=== PATIENT | female | born 1985 | race Caucasian/White ===

== ENCOUNTER 2021-11-30 14:01 | Inpatient (IN) | payer MEDICAID ==
[~2021-11-30] VITALS: Ht 172.7 cm; Wt 140.2 kg
[2021-11-30 14:06] VITALS: BP_SYST 115
--- NOTE | 2021-11-30 14:14 | NUR ---
BIBA WITH C/C OF S/P FALL WHILE WALKING DOWN CEMENT STAIRWAY AT [employer]. PRESENTS WITH RIGHT LOWER EXTREMITY IN FOAM IMMOBILIZER AND SMALL LACERATION TO LEFT PARIETAL SCALP. DENIES ANY N/V/DIZZINESS OR LOC. REPORTS PAIN 10/10 FROM ANKLE AFTER IMMOBILIZER PLACED BY EMT. PT REPORTS REDUCING ANKLE DISLOCATION INDEPENDENTLY AND WHEN IMMOBILIZER PLACED ANKLE DISLOCATED. PLACED IN ROOM 6. DR. WARREN SEEN PT WHILE ON [facility].
[2021-11-30] MEDS ORDERED: MORPHINE 4 MG INJ. 4 MG/ML VIAL IVP ONE (14:15)
[2021-11-30] MEDS ORDERED: NACL 0.9% 1,000 ML IV ONE (14:15)
[2021-11-30] MEDS ORDERED: ONDANSETRON HCL 4 MG/2 ML VIAL IVP ONE ×2 (14:15→15:15)
[2021-11-30] MEDS ORDERED: PROPOFOL 200MG/ 20ML VIAL (DIPRIVAN) IV ONE (15:15)
[2021-11-30] MEDS ORDERED: HYDROmorphone 1 MG/ML INJ. CARTRIDGE IVP ONE ×3 (15:15→19:45)
--- NOTE | 2021-11-30 16:08 | NUR ---
Patient on monitor, oxygen. Iv checked- flushes well. Suction working, crash cart right outside the room. MD finishing consious sedation paperwork. Everything ready to go: pt aware of plan of care.
--- NOTE | 2021-11-30 16:50 | NUR ---
CONSCIOUS SEDATION AT BEDSIDE. PLACED ON NC 2LPM WITH ETCO2 MONITOR. SPO2 97%, ETCO2 37-44. NO RESPIRATORYDISTRESS NOTED.
[2021-11-30 17:07] LABS: BASOPHILS % (AUTO) 0.2 % (0.0-2.0); EOSINOPHILS % (AUTO) 0.3 % (0.0-4.0); HEMOGLOBIN 10.7 g/dL (12.0-16.0); LYMPHOCYTES # (AUTO) 1.2 K/uL (1.0-5.5); LYMPHOCYTES % (AUTO) 10.8 % (20.5-51.5); MEAN CORPUSCULAR HEMOGLOBIN 26 pg (27-31); MEAN CORPUSCULAR HGB CONC 32 % (32-36); MEAN CORPUSCULAR VOLUME 81 fL (79.0-98.0); MONOCYTES # (AUTO) 0.5 K/uL (0.0-1.0); NEUTROPHILS # (AUTO) 9.6 K/uL (1.8-7.7); NEUTROPHILS % (AUTO) 84.7 % (40.0-70.0); PLATELET COUNT (AUTO) 257 K/uL (130-430); RED BLOOD CELL COUNT(AUTO) 4.06 MIL/uL (4.2-6.2); RED CELL DISTRIBUTION WIDTH 14.3 % (9.0-15.0); WHITE BLOOD COUNT (AUTO) 11.4 K/uL (4.8-10.8)
[2021-11-30 17:27] LABS: CALCIUM 8.7 mg/dL (8.4-11.0); CREATININE 0.89 mg/dL (0.55-1.30)
[2021-11-30 17:33] LABS: ALBUMIN 3.3 g/dL (3.4-4.8); TOTAL BILIRUBIN 0.2 mg/dL (0.0-1.0)
--- NOTE | 2021-11-30 18:28 | NUR ---
Admit bed requested Patient will be admitted to care of Admitted to Med Surg unit. Diagnosis Ankle FX Inpatient (Yes or No) yes Observation (Yes or No) Orientation concerns or request close to nursing station (Yes or No) no Covid Status On vent or bipap no Isolation requirements no Needs a sitter no From Home (Yes or if No enter name of facility) yes Requires Dialysis (Yes or No) no Med Rec Completed (Yes of No) yes
[2021-11-30] MEDS ORDERED: KETOROLAC TROMETHAMINE 30 MG VIAL IVP ONE (18:30)
[2021-11-30] MEDS ORDERED: ESCI10TA PO (18:35)
--- NOTE | 2021-11-30 19:06 | NUR ---
Report to Blake CAMARILLO
--- NOTE | 2021-11-30 20:17 | NUR ---
patient is Alert and oriented x4 and still complaning about the pain on the right foot. she is coperative, no sign of repiratory distress. vital sign is 63, 97, 108/58, 98.2.
[2021-11-30 20:55] VITALS: BP_SYST 109
[2021-11-30] MEDS ORDERED: NALOXONE HCL 0.4 MG/ML AMP (NARCAN) IVP PRN ×2 (21:15)
[2021-11-30] MEDS ORDERED: ACETAMINOPHEN 325 MG TABLET PO PRN (21:15)
[2021-11-30] MEDS ORDERED: HYDROcodone/ACETAMIN 5-325 MG TAB (NORCO/ VICODIN) PO PRN (21:15)
[2021-11-30] MEDS: HYDROcodone/ACETAMIN 10-325 MG TAB PO PRN (21:24)
[2021-11-30] MEDS ORDERED: ONDANSETRON HCL 4 MG/2 ML VIAL ONE (21:55)
[2021-11-30] MEDS ORDERED: ONDANSETRON HCL 4 MG/2 ML VIAL IM PRN ×2 (22:00→23:15)
--- NOTE | 2021-11-30 22:26 | NUR ---
Consultation Paged Reason for Consultation: Rt ankle fx Was consult called: Y Person who was notified: Krissy Consulting Physician: Dr. Caban Ordering Physician: Tommy Moon
--- NOTE | 2021-11-30 23:50 | NUR ---
CASTANO CATH INSERTION # 16 FR Castano catheter with 10 ML bulb inserted with use of sterile technique. Bulb inflated with 10 ML sterile water. Immediate return of 300 ML of yellow urine noted. Bedside drainage bag placed below level of bladder. Urine sample collected and sent to lab at 0100. Pt tolerated procedure WELL.
[2021-12-01] MEDS: traZODone HCL 50 MG TABLET (DESYREL) PO SCH ×2 (00:09→21:30)
[2021-12-01] MEDS: OXYCODONE/ACETAMINOPHEN *10*mg/325 mg TABLET PO PRN ×4 (00:11→18:29)
--- NOTE | 2021-12-01 00:40 | NUR ---
Patient will be admitted to care of fracture on right foot . Admitted to medsur] unit. Will go to room 109A . Belongings list completed. Complete and up to date summary report printed. SBAR report to be given at bedside with opportunity for questions Rn for room 109 A
[2021-12-01] MEDS ORDERED: ONDANSETRON HCL 4 MG/2 ML VIAL IVP PRN (01:15)
[2021-12-01 04:13] LABS: BILIRUBIN,URINE NEGATIVE (NEGATIVE); BLOOD, URINE NEGATIVE (NEGATIVE); CLARITY/URINE CLEAR (CLEAR); COLOR,URINE YELLOW (YELLOW); GLUCOSE,URINE NEGATIVE (NEGATIVE); KETONES,URINE NEGATIVE (NEGATIVE); LEUKOCYTE ESTERASE ,URINE NEGATIVE (NEGATIVE); NITRITE, URINE NEGATIVE (NEGATIVE); PH,URINE 5.5 (5.0-8.0); PROTEIN URINE NEGATIVE (NEGATIVE); UROBILINOGEN,URINE 0.2 (0.2-1.0)
[2021-12-01] MEDS: ONDANSETRON HCL 4 MG/2 ML VIAL IVP PRN ×3 (05:07→15:56)
[2021-12-01] MEDS: NORMAL SALINE 5 ML DISP.SYRIN IVF SCH ×3 (05:10→21:32)
--- NOTE | 2021-12-01 05:51 | NUR ---
CONSULTATION PAGED/CALLED Reason for Consultation: CARDIAC CLEARANCE Person Who was Notified: DR Min SERRATO VIA TEXT Consulting Physician: DR Min SERRATO Senior Clinical Data Analyst Specialty: Ordering Physician: Kb SERRATO
[2021-12-01] MEDS ORDERED: NORMAL SALINE 5 ML DISP.SYRIN IVF SCH (06:00)
[2021-12-01 06:58] LABS: BASOPHILS % (AUTO) 0.5 % (0.0-2.0); EOSINOPHILS # (AUTO) 0.1 K/uL (0.0-0.4); EOSINOPHILS % (AUTO) 0.8 % (0.0-4.0); HEMATOCRIT 31.3 % (36-48); HEMOGLOBIN 10.6 g/dL (12.0-16.0); LYMPHOCYTES # (AUTO) 2.2 K/uL (1.0-5.5); LYMPHOCYTES % (AUTO) 25.4 % (20.5-51.5); MEAN CORPUSCULAR HEMOGLOBIN 28 pg (27-31); MEAN CORPUSCULAR HGB CONC 34 % (32-36); MEAN CORPUSCULAR VOLUME 81 fL (79.0-98.0); MONOCYTES # (AUTO) 0.6 K/uL (0.0-1.0); MONOCYTES % (AUTO) 6.9 % (1.7-9.3); NEUTROPHILS # (AUTO) 5.7 K/uL (1.8-7.7); NEUTROPHILS % (AUTO) 66.4 % (40.0-70.0); PLATELET COUNT (AUTO) 238 K/uL (130-430); RED BLOOD CELL COUNT(AUTO) 3.85 MIL/uL (4.2-6.2); RED CELL DISTRIBUTION WIDTH 14.4 % (9.0-15.0); WHITE BLOOD COUNT (AUTO) 8.6 K/uL (4.8-10.8)
[2021-12-01 07:42] LABS: ALBUMIN 2.8 g/dL (3.4-4.8); CALCIUM 7.9 mg/dL (8.4-11.0); CREATININE 0.88 mg/dL (0.55-1.30); PHOSPHORUS 3.9 mg/dL (2.7-4.5); TOTAL BILIRUBIN 0.3 mg/dL (0.0-1.0)
[2021-12-01] MEDS: CITALOPRAM HYDROBROMIDE 20 MG TABLET PO SCH (08:24)
[2021-12-01] MEDS: HYDROcodone/ACETAMIN 10-325 MG TAB PO PRN ×3 (08:28→21:31)
[2021-12-01] MEDS ORDERED: ESCITALOPRAM OXALATE 10 MG TABLET PO SCH ×2 (09:00→21:00)
--- NOTE | 2021-12-01 10:07 | NUR ---
CONSULTATION PAGED/CALLED Reason for Consultation: []rt. ankle fracture Person Who was Notified: []left message/voicemail Consulting Physician: [] Dr. Caban Manager Nursing Home Specialty: []Ortho Ordering Physician: []Kb Moon
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
[2021-12-01 16:10] VITALS: BP_SYST 128
--- NOTE | 2021-12-01 17:06 | NUR ---
ROUNDS 11:00 ASSUMED PATIENT CARE FROM [facility]. DISCUSSED POC. VERBALIZED UNDERSTANDING 12:00 PATIENT WANTING TO SIT IN THE BEDSIDE CHAIR, INFORMED WILL NEED A CLEARANCE. 13:00- PT ROOM MATE VISITOR CALLED REPORTERS ATTENTION, PATIENT GOT OUT OF BED AND SAT ON THE RECLINER CHAIR AND USING RECLINER WHEELED SELF TO THE RESTROOM. EDUCATED PATIENT OF POTENTIAL INJURY DUE TO HER ACTION, PATIENT STATED " DO NOT WORRY ABOUT ME, I HAVE SEVERAL FRACTURES IN THE PAST THAT I KNOW HOW TO MANEUVER MY SELF". DENIES PUTTING WEIGHT ON THE RIGHT FOOT,. 14:00- PATIENT WANTED TO REMAIN SEATED IN THE RECLINER CHAIR, CALL RIGHT WITHIN PATIENT REACH. CONTINUE TO MONITOR
[2021-12-01] MEDS: BISACODYL 5 MG TABLET.DR (DULCOLAX) PO PRN (18:31)
--- NOTE | 2021-12-01 18:35 | NUR ---
CLOSING PAIN 10/10RIT ANKLE. DEEP BREATHING EXERCISES, COLD COMPRESS. MEDICATED WITH PERCOCET
[2021-12-01 21:34] VITALS: BP_SYST 140
[2021-12-02] MEDS: OXYCODONE/ACETAMINOPHEN *10*mg/325 mg TABLET PO PRN ×2 (00:21→16:30)
[2021-12-02 00:30] VITALS: BP_SYST 110
[2021-12-02] MEDS ORDERED: NALOXONE HCL 0.4 MG/ML AMP (NARCAN) IVP PRN (01:00)
[2021-12-02] MEDS ORDERED: MORPHINE 2 MG/ML INJ. SYRINGE IVP PRN (01:00)
[2021-12-02] MEDS: CITALOPRAM HYDROBROMIDE 20 MG TABLET PO SCH ×3 (01:27→20:46)
[2021-12-02] MEDS: NORMAL SALINE 5 ML DISP.SYRIN IVF SCH ×2 (05:36→14:10)
[2021-12-02] MEDS: MORPHINE 2 MG/ML INJ. SYRINGE IVP PRN (05:40)
[2021-12-02 08:00] VITALS: BP_SYST 98
[2021-12-02] MEDS ORDERED: HYDROmorphone 2 MG/ML VIAL ONE (09:04)
[2021-12-02] MEDS ORDERED: SEVOFLURANE 15 MIN GAS INH ONE (09:04)
[2021-12-02] MEDS ORDERED: GLYCOPYRROLATE 0.2 MG/ML VIAL ONE (09:04)
[2021-12-02] MEDS ORDERED: MIDAZOLAM HCL 5 MG/5 ML VIAL ONE (09:04)
[2021-12-02] MEDS ORDERED: ONDANSETRON HCL 4 MG/2 ML VIAL ONE (09:04)
[2021-12-02] MEDS ORDERED: fentaNYL CITRATE 250 MCG/5 ML AMP ONE (09:04)
[2021-12-02] MEDS ORDERED: METOCLOPRAMIDE HCL 10 MG/2 ML VIAL ONE (09:04)
[2021-12-02] MEDS ORDERED: PROPOFOL 200MG/ 20ML VIAL (DIPRIVAN) IV ONE (09:04)
[2021-12-02] MEDS ORDERED: LR 1,000 ML IV.SOLN IV ONE (09:04)
[2021-12-02] MEDS ORDERED: ONDANSETRON HCL 4 MG/2 ML VIAL IVP PRN (09:45)
[2021-12-02] MEDS ORDERED: LR 1,000 ML IV SCH (09:45)
[2021-12-02] MEDS ORDERED: KETOROLAC TROMETHAMINE 30 MG VIAL IVP PRN (09:45)
[2021-12-02] MEDS ORDERED: HYDROmorphone 1 MG/ML INJ. CARTRIDGE IVP PRN (09:45)
[2021-12-02] MEDS ORDERED: HYDROmorphone 2 MG/ML VIAL IVP PRN (09:45)
[2021-12-02] MEDS ORDERED: ONDANSETRON 4 MG ODT TAB PO PRN (11:45)
[2021-12-02] MEDS ORDERED: ACETAMINOPHEN 325 MG TABLET PO PRN ×2 (11:45→12:30)
--- NOTE | 2021-12-02 14:19 | NUR ---
ORDER RECEIVED AND CHART REVIEWED. PATIENT IS TOO SLEEPY TO PARTICIPATE AT THIS TIME. PLAN: ATTEMPT TOMORROW.
[2021-12-02] MEDS: CEFAZOLIN 1 GM IVPB PREMIX 50 ML IV SCH (14:20)
[2021-12-02 16:00] VITALS: BP_SYST 102
[2021-12-02 20:00] VITALS: BP_SYST 106; BP_SYST 113
[2021-12-02] MEDS: ASCORBIC ACID 500 MG TABLET PO SCH (20:46)
[2021-12-02] MEDS: HYDROcodone/ACETAMIN 10-325 MG TAB PO PRN (20:48)
[2021-12-02] MEDS: traZODone HCL 50 MG TABLET (DESYREL) PO SCH (20:48)
[2021-12-02] MEDS: DOCUSATE SODIUM 100 MG CAPSULE PO SCH (20:48)
[2021-12-02 21:38] VITALS: BP_SYST 102
[2021-12-03] VITALS: BP_SYST 103
[2021-12-03] MEDS: NORMAL SALINE 5 ML DISP.SYRIN IVF SCH ×4 (00:22→21:36)
[2021-12-03] MEDS: CEFAZOLIN 1 GM IVPB PREMIX 50 ML IV SCH (00:22)
[2021-12-03] MEDS: OXYCODONE/ACETAMINOPHEN *10*mg/325 mg TABLET PO PRN ×5 (00:24→21:38)
[2021-12-03] MEDS: MORPHINE 2 MG/ML INJ. SYRINGE IVP PRN ×3 (04:27→12:43)
[2021-12-03 08:00] VITALS: BP_SYST 109
[2021-12-03] MEDS: DOCUSATE SODIUM 100 MG CAPSULE PO SCH ×2 (08:39→21:35)
[2021-12-03] MEDS: CITALOPRAM HYDROBROMIDE 20 MG TABLET PO SCH ×2 (08:39→12:43)
[2021-12-03] MEDS: ASCORBIC ACID 500 MG TABLET PO SCH ×2 (08:39→21:36)
[2021-12-03] MEDS: ENOXAPARIN SODIUM 40 MG/0.4 ML SYRINGE SUBCUT SCH (08:40)
[2021-12-03] MEDS ORDERED: ESCITALOPRAM OXALATE 10 MG TABLET PO SCH (09:00)
--- NOTE | 2021-12-03 11:16 | NUR ---
I spoke w/ Dr Caban-patient will need EX Large walking boot- and FWW for home use.
--- NOTE | 2021-12-03 12:05 | NUR ---
Discharge Planning: DCP faxed pt DME-FWW order to [facility] [phone] [facility] DC requested FWW to be delivered bedside. DCP to follow up. Addendum: 12/03/21 at 1602 by Rima Lay DP Per CM Trini from [facility] called FWW should be here with 3 to 4 hours.
[2021-12-03 12:18] VITALS: BP_SYST 121
[2021-12-03] MEDS: BISACODYL 5 MG TABLET.DR (DULCOLAX) PO PRN ×2 (13:48→21:46)
[2021-12-03 16:45] VITALS: BP_SYST 126
[2021-12-03 17:11] LABS: BILIRUBIN,URINE NEGATIVE (NEGATIVE); BLOOD, URINE 3+ (NEGATIVE); CLARITY/URINE CLEAR (CLEAR); COLOR,URINE YELLOW (YELLOW); GLUCOSE,URINE NEGATIVE (NEGATIVE); KETONES,URINE NEGATIVE (NEGATIVE); LEUKOCYTE ESTERASE ,URINE TRACE (NEGATIVE); NITRITE, URINE NEGATIVE (NEGATIVE); PH,URINE 7.5 (5.0-8.0); PROTEIN URINE 1+ (NEGATIVE)
[2021-12-03 17:25] LABS: BACTERIA,URINE None Seen /HPF (None Seen); RBC,URINE >100 /HPF (0-3); WBC,URINE 0-3 /HPF (0-3)
[2021-12-03 17:26] LABS: MUCUS,URINE 1+ /LPF (None Seen)
--- NOTE | 2021-12-03 18:00 | NUR ---
A/Ox4,vss,resting in bed,c/o pain in right ankle,dressing in R foot dry and intact with splint on,swelling noted, came and seen pt.give percocet and morphine as prn order for pain,elevated RLE with pillows and applied ice packs.pt said there's blood seen in the urine médnez catheter discontinued and sent urine for UA.needs attended,call light & personal items within pt reach,safety maintained.walking boot delivered at bedside.continue to monitor pt.
[2021-12-03] MEDS: traZODone HCL 50 MG TABLET (DESYREL) PO SCH (21:35)
[2021-12-03] MEDS: LORazepam 1 MG TABLET PO PRN (21:40)
[2021-12-04] MEDS: OXYCODONE/ACETAMINOPHEN *10*mg/325 mg TABLET PO PRN ×6 (02:03→21:27)
[2021-12-04] MEDS: NORMAL SALINE 5 ML DISP.SYRIN IVF SCH ×3 (06:12→21:35)
[2021-12-04 08:28] VITALS: BP_SYST 94
[2021-12-04] MEDS: ASCORBIC ACID 500 MG TABLET PO SCH ×2 (09:23→21:28)
[2021-12-04] MEDS: CITALOPRAM HYDROBROMIDE 20 MG TABLET PO SCH ×2 (09:23→09:29)
[2021-12-04] MEDS: DOCUSATE SODIUM 100 MG CAPSULE PO SCH ×2 (09:24→21:28)
[2021-12-04] MEDS: ENOXAPARIN SODIUM 40 MG/0.4 ML SYRINGE SUBCUT SCH (09:25)
[2021-12-04] MEDS: MILK OF MAGNESIA 30 ML UDC PO PRN (12:26)
--- NOTE | 2021-12-04 15:00 | NUR ---
DISCHARGE PLANNING I spoke with pt at bedside along with dc inventory planner. Discussed dc planning. Pt states is going to be going to stay in mothers apt in [place]. Has her bariatric FWW at bedside. Would like 3-in-1 commode for home since bathroom in mothers home is very narrow and cannot fit thru it with her FWW. Called & spoke with Dr Caban, is coming to check pt's wound & change dressing. Gave ph order for bariatric 3-in-1 commode & for home health PT & nsg incision check. Informed pt and agrees with home health as well as commode. Updated dc inventory planner. DC inventory planner has pt's address & sent order/correct info to [facility].
[2021-12-04 15:17] VITALS: BP_SYST 127
--- NOTE | 2021-12-04 15:19 | NUR ---
Discharge Planning: SMILEYP faxed pt referral for commode and home health to [facility] [phone]. Addendum: 12/04/21 at 1525 by Rima Lay DP Patient will go to mother's house [address] [place] [facility] [address] P#[phone]. S[facility]LEYP made [facility] aware. Addendum: 12/04/21 at 1542 by Rima Lay DP DCP faxed final dc order from Dr Fleming to [facility] [phone].. When patient is dc by ortho please call [facility] [phone] to set up transportation home [address] [place] [facility] [address] P#[phone]. DCP made CM and nurse aware.
--- NOTE | 2021-12-04 15:38 | NUR ---
0730 Pt. in bed, sleeping, call light in reach 0900 Pt. vss, no acute distress 1000 Medicated for pain, pt. up to shower 1200 Pt. with no distress, up in chair at bedside 1400 Pt. with no distress, aaox4, possible dc today. Medicated for pain at 0130 by chg. nurse.
[2021-12-04] MEDS: BISACODYL 5 MG TABLET.DR (DULCOLAX) PO PRN (17:34)
--- NOTE | 2021-12-04 18:18 | NUR ---
1800 Pt. needs met this shift, vss, eating dinner. Given ducolax, MOM for constipation with no results. Educated on effects of narcotics on bowels, pt. verbalized understanding. Order for magcitrate 1/2 bottle at 1930 if no results from po ducolax. Pt. to go home tomorrow , dayshift to call transport company at 0700 for 10am pickup.
--- NOTE | 2021-12-04 19:24 | NUR ---
1800 Pt. has hard copy of discharge RX for pain medications. Copy is in chart. MD Caban gave the rx to pt.
[2021-12-04] MEDS ORDERED: MAGNESIUM CITRATE 300 ML ORAL SOLUTION PO PRN (19:30)
[2021-12-04 20:00] VITALS: BP_SYST 98
[2021-12-04] MEDS: traZODone HCL 50 MG TABLET (DESYREL) PO SCH (21:28)
[2021-12-04] MEDS: LORazepam 1 MG TABLET PO PRN (21:34)
--- NOTE | 2021-12-04 23:00 | NUR ---
Demetria Clark Dr. s/w Susan
[2021-12-05] VITALS: BP_SYST 102
[2021-12-05] MEDS: OXYCODONE/ACETAMINOPHEN *10*mg/325 mg TABLET PO PRN ×3 (01:02→09:28)
[2021-12-05] MEDS: DIPHENHYDRAMINE INJ 50 MG/ML VIAL IVP PRN ×2 (01:07→06:06)
[2021-12-05 04:00] VITALS: BP_SYST 108
--- NOTE | 2021-12-05 06:00 | NUR ---
PT WOKE UP AT 0600 AND DID HER MORNING CARE. BRUSH HER TEETH AND WASHED HER FACE AT THE BATHROOM. PT USES A WALKER AND DID FINE WALKING TO THE BATHROOM. NO COMPLAINTS OF PAIN NOTED. NO DISTRESS. KEPT WARM AND COMFORTABLE. MONITORED CLOSELY.
[2021-12-05] MEDS: NORMAL SALINE 5 ML DISP.SYRIN IVF SCH (06:07)
--- NOTE | 2021-12-05 06:45 | NUR ---
PT SLEPT ON AND OFF LAST NIGHT. MEDICATED WITH PERCOCET AND BENADRYL Q4 HRS PATIENT ASKED FOR IT AND NOTED WITH SYMPTOMS OF MODERATE PAIN AND ANXIETY. PT NEEDS A LOT OF ATTENTION. ALL NEEDS PROVIDED. MONITORED CLOSELY.
--- NOTE | 2021-12-05 07:17 | NUR ---
CALLED [employer] TO SCHEDULE FOR TRANSPORT BUT THE PHONE JUST KEEPS RINGING AND AT THE END OF THE MESSAGE SAID THAT THEY WILL BE OPEN AT 8AM. WILL ENDORSE TO MORNING SHIFT.
--- NOTE | 2021-12-05 07:30 | NUR ---
OPENING NOTES: PATIENT IS RESTING IN BED QUIETLY. AAOX4, ABLE TO MAKE NEEDS KNOWN. NO C/O PAIN OR DISTRESS. EXPLAINED POC AND PATIENT VERBALIZED UNDERSTANDING. BED IN LOW AND LOCK POSITION. CALL LIGHT, CRUTCHES, AND WALKER WITHIN REACH. STABLE CONDITION.
[2021-12-05 08:00] VITALS: BP_SYST 96
[2021-12-05 08:40] VITALS: BP_SYST 115
[2021-12-05] MEDS: ENOXAPARIN SODIUM 40 MG/0.4 ML SYRINGE SUBCUT SCH (09:00)
[2021-12-05] MEDS: DOCUSATE SODIUM 100 MG CAPSULE PO SCH (09:09)
[2021-12-05] MEDS: ASCORBIC ACID 500 MG TABLET PO SCH (09:09)
[2021-12-05] MEDS: CITALOPRAM HYDROBROMIDE 20 MG TABLET PO SCH ×2 (09:09→09:10)
[2021-12-05] MEDS: MILK OF MAGNESIA 30 ML UDC PO PRN (09:27)
[2021-12-05 09:30] VITALS: BP_SYST 115
--- NOTE | 2021-12-05 10:05 | NUR ---
ABT FOR DC HOME: PER PATIENT, DR GARCIA HAS TOLD HER HE WILL WRITE A PRESCRIPTION ON LOW DOSE ABT WHEN SHE GOES HOME TODAY. DR GARCIA AT THE BUILDING AND SPOKE WITH PATIENT. PER MD HE WILL WRITE PRESCRIPTION ON STOOL SOFTENER AND ABT. PRESCRIBE ABT WILL BE SENT TO PATIENT PHARMACY.
[2021-12-05] MEDS ORDERED: LEVO250T73 PO (10:43)
--- NOTE | 2021-12-05 10:45 | NUR ---
SHOWER CHAIR AND CRYOTHERAPY: PATIENT REQUESTED FOR SHOWER AND CRYOTHERAPY FOR DC HOME. PER PATIENT, SHE HAS TO LEAVE [facility] DUE TO [facility] CAB HAS BEEN WAITING OUTSIDE. WILL CALL DR GARCIA AGAIN.
[2021-12-05] MEDS ORDERED: DOCU250C71 PO (10:47)
--- NOTE | 2021-12-05 10:50 | NUR ---
DISCHARGE: EXPLAINED AND GAVE DC INSTRUCTION. PATIENT VERBALIZED UNDERSTANDING. IV REMOVED FROM THE RFA. IV CATH INTACT WHEN REMOVED. COVER SITE WITH GAUZE AND SECURE WITH TAPE. WHEELED OUT ACCOMPANIED BY PRIMARY NURSE AND COTTAGE CHEESE MAKER. STABLE CONDITION WHEN LEFT THE FACILITY. ALL PERSONAL BELONGINGS GIVEN TO PATIENT AND DENIES MISSING ITEMS.
--- NOTE | 2021-12-05 11:30 | NUR ---
SHOWER CHAIR AND CRYOTHERAPY: SPOKE WITH DR GARCIA REGARDING THE SHOWER CHAIR AND CRYOTHERAPY THAT PATIENT REQUESTED TO GO HOME WITH. HOWEVER, PATIENT LEFT AT 1050AM TODAY. PER MD, NEED TO CALL ASSOCIATE PROFESSOR OF SOCIOLOGY. WILL CALL CM.
--- NOTE | 2021-12-05 11:35 | NUR ---
AXLE TURNER: PER AXLE TURNER, PATIENT HAS A SHOWER CHAIR AT HOME THAT HER INSURANCE SEND. IN REGARDS TO CRYOTHERAPY, PATIENT NEEDS TO CALL HER INSURANCE IF IT COVERS THEN HAVE HER PCP TO ORDER IT. WILL CALL THE PATIENT.
--- NOTE | 2021-12-05 11:40 | NUR ---
CALLED THE PATIENT'S CELL: MADE AWARE TO PATIENT THAT THE INSURANCE COMPANY SEND HER THE SHOWER CHAIR AND SHE NEEDS TO CALL HER INSURANCE IF SHE IS COVERED TO GET A CRYOTHERAPY AND HAVE HER PCP TO ORDER IT. ALSO, TO ADJUSTER PIANO ACTION HER PRESCRIPTION AT THE HER PHARMACY (ABT LEVAQUIN AND STOOL SOFT).
[2021-12-05] MEDS ORDERED: levoFLOXacin 250 MG TABLET PO SCH (21:00)
--- NOTE | 2021-12-26 10:01 | NUR ---
Edm Operator CURRICULUM DEVELOPMENT MANAGER was making Post Discharge Follow Up Phone Calls and spoke to Brandy who stated she missed her apt. with Dr. Caban. She needed to get her stitches out but missed her apt. due to waking up again in excruciating pain. Brandy stating she at times feels feverish and when the catheter was removed, still suffers from leakage. Brandy added she believes she has a UTI. Addendum: 12/26/21 at 1012 by Jessica Larry CURRICULUM DEVELOPMENT MANAGER Edm Operator CURRICULUM DEVELOPMENT MANAGER asked Brandy to call her PCP, Dr. Soria to see if she can come in for the listed health concerns. Brandy stated she will just go to Dr. Caban to get her stitches removed discuss the other issues. CURRICULUM DEVELOPMENT MANAGER asked Brandy to call her PCP for an appt. Brandy added her PT has not worked out. One Pt just showed up without an apt. another PT company never came. CURRICULUM DEVELOPMENT MANAGER asked pt. to contact [facility] today. Brandy agreed to call Dr. Soria and [facility]ie to address her PT needs.
== END 2021-12-05 10:50 | disposition home health service (06) | DRG 313 ==
LOC: SED 14:01 → SMU 17:41
PROVIDERS: ADMIT Specialist; ATTEND Specialist
PROC: 0QSJXZZ Reposition Right Fibula, External Approach (ICD-10-PCS; 2021-11-30)
PROC: 0QSJ04Z Reposition Right Fibula with Internal Fixation Device, Open Approach (ICD-10-PCS; principal; 2021-12-02 08:47)
DX: S82.841A Displaced bimalleolar fracture of right lower leg, initial encounter for closed fracture (principal); E44.1 Mild protein-calorie malnutrition; R65.10 Systemic inflammatory response syndrome (SIRS) of non-infectious origin without acute organ dysfunction; Z20.822 Contact with and (suspected) exposure to COVID-19; W01.0XXA Fall on same level from slipping, tripping and stumbling without subsequent striking against object, initial encounter; Y92.89 Other specified places as the place of occurrence of the external cause; Y93.89 Activity, other specified; Y99.8 Other external cause status; Z79.899 Other long term (current) drug therapy; Z88.0 Allergy status to penicillin
CPT/HCPCS: 36415; 71045; 80053; 81000; 81003; 83735; 84100; 84703; 85025; 86886; 86900; 86901; 87081; 93005; 93306; 94010; 94760; 96361; 96374; 96375; 96376; 97116-GP; 97530-GP; 99291; C1713; J0690; J1170; J1200; J1650; J1885; J2250; J2270; J2405; J2704; J2765; J3010; J3490; J7030; J7120